=== PATIENT | female | born 2000 | race Caucasian/White ===

== ENCOUNTER 2022-08-04 20:51 | Emergency (ER) | payer OTHER, SELFPAY ==
[2022-08-04 21:13] VITALS: BP 111/78; PULSE 99; RESP 18; TEMP 36.6; O2SAT 99; BMI 20.6
--- NOTE | 2022-08-04 21:30 | ED_ITS ---
HPI - General Adult General Time Seen by Provider: 21:30 Date Seen: 08/04/22 Chief complaint: Cough Stated complaint: Chest pains Time Seen by Provider: 08/04/22 21:29 Source: patient Mode of arrival: ambulatory Limitations: no limitations History of Present Illness HPI narrative: Terri is a 22-year-old female student past medical history includes mitral valve prolapse from [place] presents emergency department with significant other with cough and chest pains. Patient states that last Wednesday she developed some ongoing congestion and cough, cough is productive white sputum,this is progressively got worse, she did have a sick contact with her significant other, he had symptoms for about 5 days and is been getting better. She has also had some ear fullness, she denies any sore throat, she has been eating and drinking, no palpitations, dizziness or lightheadedness. She noticed yesterday and today worsening shortness of breath with exertion, she also had fevers and chills, she is vaccinated against COVID. Patient has associated nausea but no vomiting, no headache, she denies any diarrhea, pain is worse with inspiration, sharp no radiation upper anterior chest area. Hurts to cough. She denies any smoking or alcohol use, no history of any PEs or DVTs in the past. She is not on any medications. She has been taking Mucinex which has helped with her symptoms. She has had pneumonia in the past when she was little. Related Data Previous Rx's Medication Instructions Recorded albuterol sulfate 90 mcg/actuation 1 inh inhalation QID #6.7 grams 08/04/22 aerosol inhaler (Proventil HFA) benzonatate 100 mg capsule 100 mg PO TID PRN cough 5 days #15 08/04/22 caps Allergies Allergy/AdvReac Type Severity Reaction Status Date / Time No Known Drug Allergies Allergy Verified 08/04/22 21:15 Review of Systems Status of ROS: Reports: 10 or more systems reviewed and unremarkable except as noted in History and below [facility] Medical History (Updated 08/04/22 @ 22:52 by Myles Manzo MD) Mitral valve prolapse ?I34.1 - Nonrheumatic mitral (valve) prolapse (ICD-10) Surgical History (Updated 08/04/22 @ 22:28 by Luis Enrique Andrade RN) No significant past surgical history Social History Smoking Status: Never smoker Second hand tobacco smoke exposure: No How often do you have a drink containing alcohol: never How often do you have six or more drinks on one occasion: Never AUDIT-C Alcohol total score: 0 Non-prescribed substance use: denies use Exam Narrative: Exam Narrative: General: No obvious distress sitting comfortably, nontoxic in appearance HEENT: Bilateral middle ear effusions, mild erythema Oropharynx clear and moist, no post oropharyngeal erythema Lungs: Clear to auscultation bilaterally Heart: Normal sinus rhythm S1-S2 Abdomen: Soft, nontender, bowel sounds present Muscle skeletal: Moving upper lower extremities with no difficulty Neuro: Alert awake and oriented x3 Const: Vital Signs, click to edit/add: Vital Signs - 24 hr 08/04/22 21:13 08/04/22 21:53 08/04/22 22:41 Temperature 98 F 98 F 98 F Pulse Rate [Left P ulse Oximeter] 99 Respiratory Rate 18 Blood Pressure [Ri ght Upper Arm] 111/78 Pulse Oximetry 99 Oxygen Delivery Me thod Room Air Course Course Hospital Course: 9:30 PM: AIDET performed. vitals are stable. Workup will include IM Toradol 30 mg, pain seems more reproducible and pleuritic in nature from her cough, will obtain nasopharyngeal swabs including COVID/influenza/RSV, XR chest PA and lateral, CBC, CRP, point of care troponin and metabolic panel, suspect viral etiology. Differential included viral upper respiratory illness, tuberculosis, pneumonia, COVID pneumonia, strep throat illness, bronchitis, asthma, reactive airway disease, chronic cough, pericarditis, myocarditis, allergic rhinitis, bronchiolitis, GERD as well as other etiologies Reevaluation(s) Reevaluation #1: XR chest PA and lateral showed no acute cardiopulmonary process, boarding care troponin 0.0, CBC showed no leukocytosis, metabolic panel showed mildly elevated AST of 36, CRP 1.2, patient was positive for influenza B, due to the onset of symptoms patient not a candidate for Tamiflu at this time, patient is feeling better after above care given, plan would be to discharge he will follow-up with primary care provider as needed over the next 7-10 days. Prescription for Proventil inhaler and Tessalon Perles 100 mg sent to her pharmacy to help with her cough. All questions answered. Time: 22:42 Vital Signs Vital signs: Initial Vital Signs Temperature 98 F 08/04/22 21:13 Temperature Source Temporal Artery Scan 04/25/23 21:13 Pulse Rate 99 08/04/22 21:13 Respiratory Rate 18 08/04/22 21:13 Blood Pressure 111/78 08/04/22 21:13 Blood Pressure Mean 89 08/04/22 21:13 Blood Pressure Position Sitting 08/04/22 21:13 Pulse Oximetry 99 08/04/22 21:13 Oxygen Delivery Method Room Air 08/04/22 21:13 Vital Signs Temperature 98 F 08/04/22 21:13 Pulse Rate 99 08/04/22 21:13 Respiratory Rate 18 08/04/22 21:13 Blood Pressure 111/78 08/04/22 21:13 Pulse Oximetry 99 08/04/22 21:13 Oxygen Delivery Method Room Air 08/04/22 21:13 Temperature 98 F 08/04/22 22:41 Pulse Rate 99 08/04/22 21:13 Respiratory Rate 18 08/04/22 21:13 Blood Pressure 111/78 08/04/22 21:13 Pulse Oximetry 99 08/04/22 21:13 Oxygen Delivery Method Room Air 08/04/22 21:13 Medical Decision Making Lab Data Labs: Lab Results 08/04/22 08/04/22 Range/Units 21:36 21:55 WBC 9.03 (4.50-11.00) K/uL RBC 4.40 (4.00-5.20) m/uL Hgb 13.0 (12.0-16.0) gm/dL Hct 37.8 (33.0-51.0) % MCV 86 (80-100) fL MCH 30 (26-34) pg MCHC 34 (32-36) gm/dL RDW Coeff of Bryan 12.2 (11.5-15.5) % Plt Count 160 (140-440) K/uL Neut % (Auto) 73.9 H (42.0-72.0) % Lymph % (Auto) 18.5 L (20-44) % Baker % (Auto) 7.3 (0.0-11.0) % Eos % (Auto) 0.1 (0.0-7.0) % Baso % (Auto) 0.2 (0.0-3.0) % Neut # (Auto) 6.70 (1.7-7.0) K/uL Lymph # (Auto) 1.70 (0.90-2.90) K/uL Baker # (Auto) 0.70 (0.00-0.90) K/UL Eos # (Auto) 0.01 (0.00-0.50) K/uL Baso # (Auto) 0.02 (0.00-0.30) K/uL D-Dimer Quant (PE/DVT) Cancelled Sodium 140 (135-149) mmol/L Potassium 3.7 (3.6-5.1) mmol/L Chloride 110 (96-114) mmol/L Carbon Dioxide 23 (20-32) mmol/L BUN 9 (5-24) mg/dL Creatinine 0.5 (0.5-1.5) mg/dL Estimated Creat Clear 152.94 Estimated GFR 137 ml/min Glucose 111 (60-115) mg/dL Calcium 8.9 (8.4-10.6) mg/dL Total Bilirubin 0.4 (0.1-1.5) mg/dL AST 36 H (12-35) U/L ALT 32 (4-35) U/L Alkaline Phosphatase 56 (40-150) U/L C-Reactive Protein 1.2 H (0.5-1.0) mg/dL Total Protein 7.3 (6.0-8.3) g/dL Albumin 4.4 (3.3-5.0) g/dL SARS-CoV-2 (PCR) Negative SARS-CoV-2 (Negative) Influenza Type A (PCR) Negative PCR FLU A (Negative) Influenza Type B (PCR) POSITIVE PCR FLU B A (Negative) RSV (PCR) Negative PCR RSV (Negative) POC Troponin I 0.00 L (0.01-0.04) ng/ml Discharge Plan Discharge Clinical Impression: Influenza B Patient Disposition: Home, Self-Care Condition: Improved Instructions: Influenza (ED) Additional Instructions: To take the Tessalon Kelsy cough suppressant 3 times daily over the next 5 days, albuterol inhaler 1-2 puffs as needed for cough and shortness of breath, follow- up with primary care provider over the next 7-10 days. Return if worsened symptoms. Prescriptions: New benzonatate 100 mg capsule 100 mg PO TID PRN (Reason: cough) 5 Days Qty: 15 0RF albuterol sulfate [Proventil HFA] 90 mcg/actuation HFA aerosol inhaler 1 inh inhalation QID Qty: 6.7 0RF Follow Up/Referrals: Provider,Not a Local [Primary Care Provider] - Stand Alone Forms: [employer] Info Instructions
--- NOTE | 2022-08-04 21:42 | CRLHL7_ITS ---
For Patients: As a result of the Cures Act, medical imaging exams and procedure reports are released immediately into your electronic medical record. You may view this report before your referring provider. If you have questions, please contact your health care provider. INDICATION: Chest pain, cough, fever. TECHNIQUE: Chest 2 view. COMPARISON: None. FINDINGS: Cardiovascular and mediastinum: Heart size and vasculature are normal in caliber and appearance. Lungs and pleural spaces: Lungs are clear. No sign of infiltrate or mass. No sign of pleural effusion. No pneumothorax. Bones and soft tissues: No significant findings. IMPRESSION: No acute or significant findings. Dictated by Stu Toledo MD @ 08/04/2022 10:39:25 PM (Electronically Signed)
[2022-08-04 21:53] VITALS: TEMP 36.6
[2022-08-04] MEDS: KETOROLAC 30 MG/ML inj IM (21:53)
[2022-08-04 22:06] LABS: Basophils Absolute Auto 0.02 K/uL (0.00-0.30); Basophils Percent Auto 0.2 % (0.0-3.0); Eosinophils Absolute Auto 0.01 K/uL (0.00-0.50); Eosinophils Percent Auto 0.1 % (0.0-7.0); Hematocrit 37.8 % (33.0-51.0); Lymphocytes Percent Auto 18.5 % (20-44); Mean Corpuscular HGB Conc 34 gm/dL (32-36); Mean Corpuscular Hemoglobin 30 pg (26-34); Mean Corpuscular Volume 86 fL (80-100); Monocytes Percent Auto 7.3 % (0.0-11.0); Neutrophils Percent Auto 73.9 % (42.0-72.0); Platelet Count* 160 K/uL (140-440); RDW Coefficient of Variation % 12.2 % (11.5-15.5); White Blood Count* 9.03 K/uL (4.50-11.00)
[2022-08-04 22:16] LABS: Albumin* 4.4 g/dL (3.3-5.0); Chloride* 110 mmol/L (96-114)
[2022-08-04 22:17] LABS: Potassium* 3.7 mmol/L (3.6-5.1); Sodium* 140 mmol/L (135-149)
[2022-08-04 22:19] LABS: Bilirubin Total* 0.4 mg/dL (0.1-1.5); Creatinine* 0.5 mg/dL (0.5-1.5); Est. Creatinine Clearance* 152.94; Estimated Glomerular Filt Rate 137 ml/min
[2022-08-04 22:20] LABS: Alanine Aminotransferase* 32 U/L (4-35); Alkaline Phosphatase* 56 U/L (40-150); Aspartate Amino Transferase* 36 U/L (12-35); Blood Urea Nitrogen* 9 mg/dL (5-24); Calcium* 8.9 mg/dL (8.4-10.6); Carbon Dioxide* 23 mmol/L (20-32); Glucose* 111 mg/dL (60-115); Total Protein* 7.3 g/dL (6.0-8.3)
[2022-08-04 22:23] LABS: C Reactive Protein* 1.2 mg/dL (0.5-1.0)
[2022-08-04 22:24] LABS: Slide Review Reflex No
[2022-08-04 22:35] LABS: PCR FLU A Negative PCR FLU A (Negative); PCR FLU B POSITIVE PCR FLU B (Negative); PCR RSV Negative PCR RSV (Negative)
[2022-08-04 22:36] LABS: SARS PCR* Negative SARS-CoV-2 (Negative)
[2022-08-04 22:41] VITALS: TEMP 36.6
[2022-08-04 22:57] VITALS: BP 111/78; PULSE 99; RESP 18; TEMP 36.6
== END 2022-08-04 22:57 | disposition home or self-care (01) ==
PROVIDERS: Emergency Provider Student in an Organized Health Care Education/Training Program
DX: J10.1 Influenza due to other identified influenza virus with other respiratory manifestations (principal)
CPT/HCPCS: 36415; 71046; 80053; 84484; 85025; 85379; 86140; 87631; 96372; 99283; 99284; J1885